=== PATIENT | female | born 1990 | race Caucasian/White ===

== ENCOUNTER 2018-02-23 15:08 | Inpatient (IN) | payer OTHER ==
[~2018-02-23] VITALS: Ht 160 cm; Wt 92.8 kg
[~2018-02-23 15:08] MED LIST changes: -ACET325 PO; -CEFD300 PO; -CITA20 PO; -Chloraseptic177 ML TOP; -IBU400 MG PO; -LEVFLO500 PO; -METO25 PO; -ROBITUSSIN COU237 ML PO; -Synthroid175 MCG PO; -TRAM50 PO; -Tessalon200 MG PO; -Zithromax250 MG PO
[2018-02-23] MEDS ORDERED: CITA20 PO (15:25)
[2018-02-23 16:03] LABS: BASOPHILS ABSOLUTE AUTO 0.06 K/mm3 (0.00-0.23); BASOPHILS PERCENT AUTO 1 % (0-2); EOSINOPHILS PERCENT AUTO 1 % (0-6); Hematocrit 40.7 % (33.0-51.0); Hemoglobin 13.5 g/dL (11.5-16.0); IMMATURE GRAN ABSOLUTE AUTO 0.03 K/mm3 (0.00-0.10); IMMATURE GRAN PERCENT AUTO 0 % (0-1); LYMPHOCYTES ABSOLUTE AUTO 2.03 K/mm3 (0.84-5.20); LYMPHOCYTES PERCENT AUTO 21 % (21-46); MONOCYTES PERCENT AUTO 11 % (4-13); Mean Corpuscular HGB 30.9 pg (26.0-34.0); Mean Corpuscular HGB Conc 33.2 g/dL (31.5-36.5); Mean Corpuscular Volume 93 fL (80-100); Mean Platelet Volume 9.9 fL (9.1-12.4); NEUTROPHILS ABSOLUTE AUTO 6.36 K/mm3 (1.96-9.15); NEUTROPHILS PERCENT AUTO 66 % (41-73); Platelet Count 377 K/mm3 (150-400); RDW Coefficient Variation 13.4 % (11.7-14.2); RDW Standard Deviation 46.1 fL (35.1-46.3); Red Blood Cell Count 4.37 M/mm3 (3.80-5.20); White Blood Cell Count 9.68 K/mm3 (4.00-11.30)
[2018-02-23 16:13] LABS: Anion Gap 9 mmol/L (6-16); Blood Urea Nitrogen 8 mg/dL (8-24); Bun/Creatinine Ratio 11.1 (12.0-20.0); CO2, Blood 24 mmol/L (21-32); Calcium, Blood 8.2 mg/dL (8.5-10.1); Chloride, Blood 106 mmol/L (98-108); Creatinine, Blood 0.72 mg/dL (0.40-1.00); Glomerular Filtration Rate >60 (60-); Glucose, Blood 91 mg/dL (70-99); Magnesium, Blood 2.1 mg/dL (1.6-2.4); Potassium, Blood 3.5 mmol/L (3.5-5.5); Sodium, Blood 139 mmol/L (136-145); Troponin I <0.015 ng/mL (0.000-0.040)
[2018-02-23 17:14] LABS: U Amphetamine Screen Not Detected; U Barbituate Screen Not Detected; U Benzodiazapine Screen Not Detected; U Buprenorphine Screen Not Detected; U Cannabinoids Screen Not Detected; U Cocaine Screen Not Detected; U Methadone Screen Not Detected; U Methamphetamine Screen Not Detected; U Opiates Screen DETECTED; U Oxycodone Screen Not Detected; U Phencyclidine Screen Not Detected; U Propoxyphene Screen Not Detected
[2018-02-23] MEDS ORDERED: Zithromax250 MG PO (17:35)
[2018-02-23] MEDS ORDERED: CEFD300 PO (17:35)
[2018-02-24 00:58] LABS: Adenovirus Not Detected (NOT DETECT); Bordetella pertussis Not Detected (NOT DETECT); Chlamydophila pneumoniae Not Detected (NOT DETECT); Coronavirus 229E Not Detected (NOT DETECT); Coronavirus HKU1 Not Detected (NOT DETECT); Coronavirus NL63 Not Detected (NOT DETECT); Coronavirus OC43 Not Detected (NOT DETECT); Human Metapneumovirus Not Detected (NOT DETECT); Human Rhinovirus/Enterovirus Not Detected (NOT DETECT); Influenza A/2009-H1 Not Detected (NOT DETECT); Influenza A/H1 Not Detected (NOT DETECT); Influenza A/H3 Not Detected (NOT DETECT); Influenza B Not Detected (NOT DETECT); Mycoplasma pneumoniae Not Detected (NOT DETECT); Parainfluenza Virus 1 Not Detected (NOT DETECT); Parainfluenza Virus 2 Not Detected (NOT DETECT); Parainfluenza Virus 3 Not Detected (NOT DETECT); Parainfluenza Virus 4 Not Detected (NOT DETECT); Respiratory Syncytial Virus Not Detected (NOT DETECT)
[2018-02-24 02:47] LABS: Influenza A Not Detected (NOT DETECT)
--- NOTE | 2018-02-24 02:59 | NUR ---
UNCONTROLLED COUGH. PT BEGAN COUGHING UNCONTROLLABLY WITH NO RELIEF AT 0220. DR. RICO CALLED & ORDERED TESSALON FOR THE COUGH. WILL CONTINUE TO MONITOR PT.
--- NOTE | 2018-02-24 05:12 | NUR ---
SHIFT SUMMARY PT COUGH WELL CONTROLLED AFTER TESSALON. PT SLEEPING AT THIS TIME. NO OTHER CHANGES IN ASSESSMENT AT THIS TIME. PT HAS BEEN IN NSR PER FOUNTAIN OPERATOR & VSS. WILL CONTINUE TO MONITOR UNTIL TURNOVER IS COMPLETE. FLU SWAB NEGATIVE.
[2018-02-24 05:51] LABS: Hematocrit 38.7 % (33.0-51.0); Hemoglobin 12.5 g/dL (11.5-16.0); Mean Corpuscular HGB 29.9 pg (26.0-34.0); Mean Corpuscular HGB Conc 32.3 g/dL (31.5-36.5); Mean Corpuscular Volume 93 fL (80-100); Mean Platelet Volume 9.8 fL (9.1-12.4); Platelet Count 363 K/mm3 (150-400); RDW Coefficient Variation 13.7 % (11.7-14.2); RDW Standard Deviation 46.5 fL (35.1-46.3); Red Blood Cell Count 4.18 M/mm3 (3.80-5.20); White Blood Cell Count 7.87 K/mm3 (4.00-11.30)
[2018-02-24 06:13] LABS: Anion Gap 6 mmol/L (6-16); Blood Urea Nitrogen 8 mg/dL (8-24); Bun/Creatinine Ratio 11.9 (12.0-20.0); CO2, Blood 27 mmol/L (21-32); Calcium, Blood 8.3 mg/dL (8.5-10.1); Chloride, Blood 107 mmol/L (98-108); Creatinine, Blood 0.67 mg/dL (0.40-1.00); Glomerular Filtration Rate >60 (60-); Glucose, Blood 90 mg/dL (70-99); Magnesium, Blood 2.2 mg/dL (1.6-2.4); Potassium, Blood 3.9 mmol/L (3.5-5.5); Sodium, Blood 140 mmol/L (136-145)
--- NOTE | 2018-02-24 14:10 | NUR ---
LAB CALLED TO REPORT POSITIVE BLOOD CULTURE THIS MORNING. INFORMED @ 1964 VIA TELEPHONE. PT ALREADY CURRENTLY ON ANTIOBIOTICS. WILL FOLLOW UP WITH PLAN FROM
--- NOTE | 2018-02-24 18:48 | NUR ---
PT HAS POSITIVE BLOOD CX, DR BANEGAS. PT ON ANTIBIOTICS. PT HAS NON PRODUCTIVE COUGH AND CHEST PAIN AT TIMES, MEDICATED PER EMAR. CURRENTLY PT HAS NO PAIN. INDEPENDENT ION ROOM. MEDICATED PER EMAR. CALL LIGHT IN REACH.
--- NOTE | 2018-02-25 04:35 | NUR ---
VSS, AFEBRILE, INDEPENDENT, A/O, NEWMAN, IVABX, 20G L AC, SL, TELE: VIR[place]IA MENDIOLA GIVE HER SOME COMFORT, FAMILY HERE TO VISIT - THE CHILDREN ARE ILL WITH A VIRUS, PT SLEPT WELL, NO C/O PAIN.
[2018-02-25] MEDS ORDERED: Tessalon200 MG PO (11:00)
[2018-02-25] MEDS ORDERED: ACET325 PO (11:00)
[2018-02-25] MEDS ORDERED: METO25 PO (11:01)
[2018-02-25] MEDS ORDERED: IBU400 MG PO (11:03)
[2018-02-25] MEDS ORDERED: ROBITUSSIN COU237 ML PO (11:03)
[2018-02-25] MEDS ORDERED: LEVFLO500 PO (11:05)
[2018-02-25] MEDS ORDERED: Chloraseptic177 ML TOP (11:07)
[2018-02-25] MEDS ORDERED: TRAM50 PO (11:08)
[2018-02-25] MEDS ORDERED: Synthroid175 MCG PO (11:09)
--- NOTE | 2018-02-25 12:18 | NUR ---
DISCHARGE SUMMARY PATIENT A&O X4. DISCHARGED AT 1150. IV D/C, WNL. PATIENT WALKED OUT WITH BELONGINGS IN HAND. RIDE WAS PICKING HER UP AT THE FRONT ENTRANCE. RN ESCORTED HER TO THE ELEVATORS. ALL DISCHARGED INFORMATION REVIEWED, PATIENT EDUCATION PACKETS SENT HOME, ALL QUESTIONS ANSWERED.
== END 2018-02-25 12:01 | disposition home or self-care (01) | DRG 871 ==
LOC: ER 15:08 → MEDS 15:09 → ENPENDDIS 02-25 10:00 → MEDS 02-25 12:01
PROVIDERS: Emergency Medicine; Nurse Practitioner Acute Care; ADMIT Internal Medicine
DX: A41.9 Sepsis, unspecified organism (principal); J18.9 Pneumonia, unspecified organism; E72.12 Methylenetetrahydrofolate reductase deficiency; I31.3 Pericardial effusion (noninflammatory); E03.9 Hypothyroidism, unspecified; R00.0 Tachycardia, unspecified; J45.20 Mild intermittent asthma, uncomplicated; I49.3 Ventricular premature depolarization; R07.1 Chest pain on breathing; R55 Syncope and collapse; Z28.20 Immunization not carried out because of patient decision for unspecified reason; Z79.82 Long term (current) use of aspirin; Z79.899 Other long term (current) drug therapy; Z88.0 Allergy status to penicillin; Z88.8 Allergy status to other drugs, medicaments and biological substances; Z91.040 Latex allergy status
CPT/HCPCS: 36415; 71260; 80048; 83605; 83735; 83880; 84145; 84443; 84484; 84703; 85025; 85027; 85379; 85651; 86140; 87040; 87449; 87486; 87581; 87633; 87798; 93005; 93010; 93306; 94640; 94760; 96361; 96365; 96367; 96375; 96376; 99285-25; G0378; J0696; J1885; J3010; J3480; J7030; J7120; Q9967

== ENCOUNTER → 2018-02-23 | Outpatient (CLI) | payer OTHER ==
[~2018-02-23] MED LIST: ACET325 PO; ALBU90OI INH; ANTOXYBENA OT; ASPI81CH PO; ASPI81EC PO; AZIT250 PO; Adult Low Dose81 MG; BCPS; BRAIN MIGHT-DH1 EACH PO; CEFD300 PO; CEPH500 PO; CITA20 PO; Chloraseptic177 ML TOP; EXPECTA PRENAT1 EACH; FABB PO; FLUT.05NI; Fabb Tablet1 EACH; Fabb Tablet1 EACH PO; HYDACE5 PO; HYDR1TAB94 PO; IBU400 MG PO; IBUP600 PO; IBUP800 PO; LEVFLO500 PO; LEVOTHYROXINE PO; LEVSOD150; LEVSOD50 PO; MEDR10 PO; METO25 PO; METR500 PO; Mucinex600 MG PO; NEOPOLHCSU OT; Norco 5-325 Ta1 EACH PO; ORACON PO; OXYACE5T PO; PROCODE120 PO; Percocet 5-3251 EACH PO; Pyridium200 MG PO; ROBITUSSIN COU237 ML PO; Synthroid175 MCG PO; TRAM50 PO; Tessalon200 MG PO; VALA500 PO; Verotin-Gr Cap1 EACH PO; Zithromax250 MG PO; Zofran Odt8 MG SL
[2018-02-23 14:30] LABS: BASOPHILS ABSOLUTE AUTO 0.04 K/mm3 (0.00-0.23); BASOPHILS PERCENT AUTO 0 % (0-2); EOSINOPHILS PERCENT AUTO 1 % (0-6); Hematocrit 41.9 % (33.0-51.0); Hemoglobin 14.4 g/dL (11.5-16.0); IMMATURE GRAN ABSOLUTE AUTO 0.02 K/mm3 (0.00-0.10); IMMATURE GRAN PERCENT AUTO 0 % (0-1); LYMPHOCYTES ABSOLUTE AUTO 1.73 K/mm3 (0.84-5.20); LYMPHOCYTES PERCENT AUTO 19 % (21-46); MONOCYTES ABSOLUTE AUTO 0.95 K/mm3 (0.16-1.47); MONOCYTES PERCENT AUTO 10 % (4-13); Mean Corpuscular HGB 31.1 pg (26.0-34.0); Mean Corpuscular HGB Conc 34.4 g/dL (31.5-36.5); Mean Corpuscular Volume 91 fL (80-100); Mean Platelet Volume 9.9 fL (9.1-12.4); NEUTROPHILS ABSOLUTE AUTO 6.47 K/mm3 (1.96-9.15); NEUTROPHILS PERCENT AUTO 70 % (41-73); Platelet Count 401 K/mm3 (150-400); RDW Coefficient Variation 13.6 % (11.7-14.2); RDW Standard Deviation 44.4 fL (35.1-46.3); Red Blood Cell Count 4.63 M/mm3 (3.80-5.20); White Blood Cell Count 9.31 K/mm3 (4.00-11.30)
[2018-02-23 14:46] LABS: Anion Gap 11 mmol/L (6-16); Blood Urea Nitrogen 9 mg/dL (8-24); CO2, Blood 28 mmol/L (21-32); Chloride, Blood 101 mmol/L (98-108); Creatinine, Blood 0.82 mg/dL (0.40-1.00); Glomerular Filtration Rate >60 (60-); Glucose, Blood 95 mg/dL (70-99); Potassium, Blood 3.6 mmol/L (3.5-5.5); Sodium, Blood 140 mmol/L (136-145)
[2018-02-23 14:48] LABS: Troponin I <0.015 ng/mL (0.000-0.040)
== END | disposition home or self-care (01) ==
LOC: LAB SHORT 14:26 → LAB EV 14:26
PROVIDERS: Physician Assistant Surgical
DX: R07.9 Chest pain, unspecified (principal); R42 Dizziness and giddiness
CPT/HCPCS: 80048; 84484; 85025

== ENCOUNTER 2018-03-01 16:04 | Emergency (ER) | payer OTHER ==
[~2018-03-01] VITALS: Ht 160 cm; Wt 93.0 kg
[~2018-03-01 16:04] MED LIST changes: +ACET325 PO; +CEFD300 PO; +CITA20 PO; +Chloraseptic177 ML TOP; +IBU400 MG PO; +LEVFLO500 PO; +METO25 PO; +ROBITUSSIN COU237 ML PO; +Synthroid175 MCG PO; +TRAM50 PO; +Tessalon200 MG PO; +Zithromax250 MG PO
[2018-03-01 18:07] LABS: Alanine Aminotransfer (ALT/SGP 78 U/L (12-78); Albumin, Blood 3.9 g/dL (3.4-5.0); Albumin/Globulin Ratio 0.9 (0.8-1.8); Alk Phos 104 U/L (50-136); Anion Gap 4 mmol/L (6-16); Aspartate Aminotrans (AST/SGOT 46 U/L (12-37); Bilirubin, Total 1.3 mg/dL (0.1-1.0); Blood Urea Nitrogen 14 mg/dL (8-24); Bun/Creatinine Ratio 21.3 (12.0-20.0); CO2, Blood 27 mmol/L (21-32); Calcium, Blood 8.4 mg/dL (8.5-10.1); Chloride, Blood 107 mmol/L (98-108); Creatinine, Blood 0.66 mg/dL (0.40-1.00); Globulin, Blood 4.2 g/dL (2.2-4.0); Glomerular Filtration Rate >60 (60-); Glucose, Blood 85 mg/dL (70-99); Potassium, Blood 3.8 mmol/L (3.5-5.5); Sodium, Blood 138 mmol/L (136-145); Total Protein, Blood 8.1 g/dL (6.4-8.2); Troponin I <0.015 ng/mL (0.000-0.040)
[2018-03-01 18:42] LABS: BASOPHILS ABSOLUTE AUTO 0.05 K/mm3 (0.00-0.23); BASOPHILS PERCENT AUTO 1 % (0-2); EOSINOPHILS ABSOLUTE AUTO 0.29 K/mm3 (0.00-0.68); EOSINOPHILS PERCENT AUTO 4 % (0-6); Hematocrit 38.1 % (33.0-51.0); Hemoglobin 13.1 g/dL (11.5-16.0); IMMATURE GRAN ABSOLUTE AUTO 0.02 K/mm3 (0.00-0.10); IMMATURE GRAN PERCENT AUTO 0 % (0-1); LYMPHOCYTES ABSOLUTE AUTO 2.29 K/mm3 (0.84-5.20); LYMPHOCYTES PERCENT AUTO 35 % (21-46); MONOCYTES ABSOLUTE AUTO 0.62 K/mm3 (0.16-1.47); MONOCYTES PERCENT AUTO 10 % (4-13); Mean Corpuscular HGB 32.8 pg (26.0-34.0); Mean Corpuscular Volume 95 fL (80-100); Mean Platelet Volume 10.8 fL (9.1-12.4); NEUTROPHILS ABSOLUTE AUTO 3.29 K/mm3 (1.96-9.15); NEUTROPHILS PERCENT AUTO 50 % (41-73); Platelet Count 431 K/mm3 (150-400); RDW Standard Deviation 47.1 fL (35.1-46.3); White Blood Cell Count 6.56 K/mm3 (4.00-11.30)
[2018-03-01 18:43] LABS: Mean Corpuscular HGB Conc 34.4 g/dL (31.5-36.5)
== END 2018-03-01 20:10 | disposition home or self-care (01) ==
LOC: ER 16:04
PROVIDERS: Physician Assistant
DX: R07.9 Chest pain, unspecified (principal); J18.9 Pneumonia, unspecified organism; J45.909 Unspecified asthma, uncomplicated; E03.9 Hypothyroidism, unspecified
CPT/HCPCS: 36415; 71046; 80053; 84484; 85025; 93005; 93010; 99285-25

== ENCOUNTER → 2018-03-13 | Outpatient (CLI) | payer OTHER | LOC: LAB EV 13:28 → LAB SHORT 13:28 | DX: R07.9 Chest pain, unspecified (principal) | CPT/HCPCS: 84484; 85379 ==

== ENCOUNTER 2019-03-27 19:06 | Emergency (ER) | payer OTHER ==
[~2019-03-27] VITALS: Ht 157.5 cm; Wt 100.4 kg
[2019-03-27] MEDS ORDERED: Cefpodoxime Pr100 MG PO (19:47)
[2019-03-27] MEDS ORDERED: Flonase 0.05% N16 GM (19:47)
== END 2019-03-27 19:51 | disposition home or self-care (01) ==
LOC: ER 19:06
DX: J01.90 Acute sinusitis, unspecified (principal); B96.89 Other specified bacterial agents as the cause of diseases classified elsewhere; Z88.0 Allergy status to penicillin; Z88.1 Allergy status to other antibiotic agents; Z91.040 Latex allergy status; Z79.899 Other long term (current) drug therapy; Z79.82 Long term (current) use of aspirin; E03.9 Hypothyroidism, unspecified
CPT/HCPCS: 99283

== ENCOUNTER → 2020-11-01 | Outpatient (CLI) | payer OTHER ==
[~2020-11-01] MED LIST changes: +ATHLETE'S FOO35.4 GM TP; +Cefpodoxime Pr100 MG PO; +Diflucan150 MG PO; +EUTHYROX200 MC1 PO; +FERREX 150150 M1 PO; +Flonase 0.05% N16 GM; +MONDOXYNE NL100 MG PO; +PRENATAL TABLE1 EAC2 PO; +Prednisone10 MG; +Ventolin/Prove6.7 GM INH
[2020-11-01 17:30] LABS: BASOPHILS ABSOLUTE AUTO 0.04 K/mm3 (0.00-0.23); BASOPHILS PERCENT AUTO 1 % (0-2); EOSINOPHILS ABSOLUTE AUTO 0.06 K/mm3 (0.00-0.68); EOSINOPHILS PERCENT AUTO 1 % (0-6); Hematocrit 38.3 % (33.0-51.0); Hemoglobin 13.2 g/dL (11.5-16.0); IMMATURE GRAN ABSOLUTE AUTO 0.01 K/mm3 (0.00-0.10); IMMATURE GRAN PERCENT AUTO 0 % (0-1); LYMPHOCYTES ABSOLUTE AUTO 1.19 K/mm3 (0.84-5.20); LYMPHOCYTES PERCENT AUTO 21 % (21-46); MONOCYTES ABSOLUTE AUTO 0.82 K/mm3 (0.16-1.47); MONOCYTES PERCENT AUTO 14 % (4-13); Mean Corpuscular HGB 31.7 pg (26.0-34.0); Mean Corpuscular HGB Conc 34.5 g/dL (31.5-36.5); Mean Corpuscular Volume 92 fL (80-100); Mean Platelet Volume 10.2 fL (9.1-12.4); NEUTROPHILS ABSOLUTE AUTO 3.57 K/mm3 (1.96-9.15); NEUTROPHILS PERCENT AUTO 63 % (41-73); Platelet Count 292 K/mm3 (150-400); RDW Coefficient Variation 13.1 % (11.7-14.2); RDW Standard Deviation 44.3 fL (35.1-46.3); Red Blood Cell Count 4.16 M/mm3 (3.80-5.20); White Blood Cell Count 5.69 K/mm3 (4.00-11.30)
[2020-11-01 17:40] LABS: Anion Gap 11 mmol/L (6-16); Blood Urea Nitrogen 10 mg/dL (8-24); Bun/Creatinine Ratio 10.8 (12.0-20.0); CO2, Blood 24 mmol/L (21-32); Calcium, Blood 8.6 mg/dL (8.5-10.1); Chloride, Blood 105 mmol/L (98-108); Creatinine, Blood 0.93 mg/dL (0.40-1.00); Glomerular Filtration Rate >60 (60-); Glucose, Blood 84 mg/dL (70-99); Potassium, Blood 3.8 mmol/L (3.5-5.5); Sodium, Blood 140 mmol/L (136-145)
== END | disposition home or self-care (01) ==
LOC: LAB SHORT 17:24 → LAB 17:24
PROVIDERS: Physician Assistant
DX: R06.02 Shortness of breath (principal)
CPT/HCPCS: 80048; 85025; 85379

== ENCOUNTER 2020-11-07 22:15 | Emergency (ER) | payer OTHER ==
[~2020-11-07] VITALS: Ht 157.5 cm; Wt 102.5 kg
[~2020-11-07 22:15] MED LIST changes: -EUTHYROX200 MC1 PO; -MONDOXYNE NL100 MG PO; -Prednisone10 MG; -Ventolin/Prove6.7 GM INH
[2020-11-07 23:27] LABS: BASOPHILS ABSOLUTE AUTO 0.01 K/mm3 (0.00-0.23); BASOPHILS PERCENT AUTO 0 % (0-2); EOSINOPHILS PERCENT AUTO 0 % (0-6); Hematocrit 42.8 % (33.0-51.0); Hemoglobin 14.2 g/dL (11.5-16.0); IMMATURE GRAN ABSOLUTE AUTO 0.01 K/mm3 (0.00-0.10); IMMATURE GRAN PERCENT AUTO 0 % (0-1); LYMPHOCYTES ABSOLUTE AUTO 1.18 K/mm3 (0.84-5.20); LYMPHOCYTES PERCENT AUTO 24 % (21-46); MONOCYTES ABSOLUTE AUTO 0.47 K/mm3 (0.16-1.47); MONOCYTES PERCENT AUTO 10 % (4-13); Mean Corpuscular HGB 30.8 pg (26.0-34.0); Mean Corpuscular HGB Conc 33.2 g/dL (31.5-36.5); Mean Corpuscular Volume 93 fL (80-100); Mean Platelet Volume 10.8 fL (9.1-12.4); NEUTROPHILS ABSOLUTE AUTO 3.17 K/mm3 (1.96-9.15); NEUTROPHILS PERCENT AUTO 66 % (41-73); Platelet Count 239 K/mm3 (150-400); RDW Coefficient Variation 13.2 % (11.7-14.2); Red Blood Cell Count 4.61 M/mm3 (3.80-5.20); White Blood Cell Count 4.84 K/mm3 (4.00-11.30)
[2020-11-07] MEDS ORDERED: Ventolin/Prove6.7 GM INH (23:40)
[2020-11-07] MEDS ORDERED: Prednisone10 MG (23:40)
[2020-11-07] MEDS ORDERED: MONDOXYNE NL100 MG PO (23:40)
[2020-11-07] MEDS ORDERED: EUTHYROX200 MC1 PO (23:41)
== END 2020-11-08 02:43 | disposition home or self-care (01) ==
LOC: ER 22:15
PROVIDERS: Emergency Medicine
DX: U07.1 COVID-19 (principal); J45.909 Unspecified asthma, uncomplicated; E03.9 Hypothyroidism, unspecified; Z88.8 Allergy status to other drugs, medicaments and biological substances; Z88.0 Allergy status to penicillin; Z91.048 Other nonmedicinal substance allergy status; Z79.899 Other long term (current) drug therapy; Z79.82 Long term (current) use of aspirin
CPT/HCPCS: 36415; 71045; 85025; 93005; 93010; 99283-25; M0243; Q0243

== ENCOUNTER → 2023-05-01 | Outpatient (CLI) | payer OTHER ==
[~2023-05-01] MED LIST changes: +EUTHYROX200 MC1 PO; +MONDOXYNE NL100 MG PO; +Prednisone10 MG; +Ventolin/Prove6.7 GM INH
[2023-05-01 17:00] LABS: BASOPHILS ABSOLUTE AUTO 0.06 K/mm3 (0.00-0.23); BASOPHILS PERCENT AUTO 1 % (0-2); EOSINOPHILS ABSOLUTE AUTO 0.17 K/mm3 (0.00-0.68); EOSINOPHILS PERCENT AUTO 2 % (0-6); Hematocrit 39.5 % (33.0-51.0); Hemoglobin 13.2 g/dL (11.5-16.0); IMMATURE GRAN ABSOLUTE AUTO 0.03 K/mm3 (0.00-0.10); IMMATURE GRAN PERCENT AUTO 0 % (0-1); LYMPHOCYTES ABSOLUTE AUTO 2.47 K/mm3 (0.84-5.20); LYMPHOCYTES PERCENT AUTO 26 % (21-46); MONOCYTES ABSOLUTE AUTO 0.69 K/mm3 (0.16-1.47); MONOCYTES PERCENT AUTO 7 % (4-13); Mean Corpuscular HGB 31.2 pg (26.0-34.0); Mean Corpuscular HGB Conc 33.4 g/dL (31.5-36.5); Mean Corpuscular Volume 93 fL (80-100); Mean Platelet Volume 10.1 fL (9.1-12.4); NEUTROPHILS ABSOLUTE AUTO 6.05 K/mm3 (1.96-9.15); NEUTROPHILS PERCENT AUTO 64 % (41-73); Platelet Count 411 K/mm3 (150-400); RDW Coefficient Variation 12.7 % (11.7-14.2); Red Blood Cell Count 4.23 M/mm3 (3.80-5.20); White Blood Cell Count 9.47 K/mm3 (4.00-11.30)
[2023-05-01 17:20] LABS: Albumin, Blood 3.9 g/dL (3.4-5.0); Bilirubin, Total 0.7 mg/dL (0.1-1.0); Bun/Creatinine Ratio 19.5 (12.0-20.0); Calcium, Blood 9.1 mg/dL (8.5-10.1); Creatinine, Blood 0.87 mg/dL (0.40-1.00); Globulin, Blood 4.1 g/dL (2.2-4.0); Potassium, Blood 3.6 mmol/L (3.5-5.5); Thyroid Stimulating Hormone 17.267 uIU/mL (0.360-4.800)
== END ==
LOC: LAB SHORT 16:56
PROVIDERS: Physician Assistant Medical
DX: R00.2 Palpitations (principal)
CPT/HCPCS: 80053; 84443; 85025

== ENCOUNTER → 2023-07-03 | Outpatient (CLI) | payer OTHER | LOC: LAB 17:52 → LAB SHORT 17:52 | DX: E03.9 Hypothyroidism, unspecified (principal) | CPT/HCPCS: 84443 ==

== ENCOUNTER 2024-01-17 00:20 | Emergency (ER) | payer OTHER ==
[~2024-01-17] VITALS: Ht 157.5 cm; Wt 97.5 kg
[2024-01-17 00:45] LABS: BASOPHILS ABSOLUTE AUTO 0.06 K/mm3 (0.00-0.23); BASOPHILS PERCENT AUTO 1 % (0-2); EOSINOPHILS ABSOLUTE AUTO 0.26 K/mm3 (0.00-0.68); EOSINOPHILS PERCENT AUTO 3 % (0-6); Hematocrit 35.9 % (33.0-51.0); Hemoglobin 12.3 g/dL (11.5-16.0); IMMATURE GRAN ABSOLUTE AUTO 0.01 K/mm3 (0.00-0.10); IMMATURE GRAN PERCENT AUTO 0 % (0-1); LYMPHOCYTES PERCENT AUTO 36 % (21-46); MONOCYTES PERCENT AUTO 10 % (4-13); Mean Corpuscular HGB 31.3 pg (26.0-34.0); Mean Corpuscular HGB Conc 34.3 g/dL (31.5-36.5); Mean Corpuscular Volume 91 fL (80-100); NEUTROPHILS ABSOLUTE AUTO 3.78 K/mm3 (1.96-9.15); NEUTROPHILS PERCENT AUTO 49 % (41-73); Platelet Count 357 K/mm3 (150-400); RDW Coefficient Variation 12.7 % (11.7-14.2); RDW Standard Deviation 42.5 fL (35.1-46.3); Red Blood Cell Count 3.93 M/mm3 (3.80-5.20); White Blood Cell Count 7.71 K/mm3 (4.00-11.30)
[2024-01-17 01:27] LABS: Bun/Creatinine Ratio 26.5 (12.0-20.0); Calcium, Blood 8.6 mg/dL (8.5-10.1); Creatinine, Blood 0.68 mg/dL (0.40-1.00); Potassium, Blood 3.6 mmol/L (3.5-5.5)
[2024-01-17 01:28] LABS: Albumin, Blood 3.6 g/dL (3.4-5.0); Globulin, Blood 3.6 g/dL (2.2-4.0); Total Protein, Blood 7.2 g/dL (6.4-8.2)
[2024-01-17 02:00] LABS: Bilirubin, Total 0.8 mg/dL (0.1-1.0)
[2024-01-17 03:30] VITALS: BP 112/78
[2024-01-17] MEDS ORDERED: HyDROXyzine HCl 25 MG Tab PO ONE (03:45)
== END 2024-01-17 04:42 | disposition home or self-care (01) ==
LOC: ER 00:20
PROVIDERS: Emergency Medicine
DX: F41.9 Anxiety disorder, unspecified (principal); J45.909 Unspecified asthma, uncomplicated; E03.9 Hypothyroidism, unspecified; Z79.899 Other long term (current) drug therapy; Z79.82 Long term (current) use of aspirin; Z88.0 Allergy status to penicillin; Z91.040 Latex allergy status; Z88.1 Allergy status to other antibiotic agents; Z88.8 Allergy status to other drugs, medicaments and biological substances
CPT/HCPCS: 71046; 80053; 84484; 84703; 85025; 93005; 93010; 99285-25; A9270